=== PATIENT | female | born 1980 | race Caucasian/White ===

== ENCOUNTER 2020-11-17 22:54 | Emergency (ER) | payer OTHER ==
[~2020-11-17] VITALS: Ht 170.2 cm; Wt 83.3 kg
[2020-11-18 00:20] LABS: BASOPHILS % (AUTO) 1 % (0-1); EOSINOPHILS % (AUTO) 1 % (1-7); LYMPHOCYTES % (AUTO) 15 % (22-44); MEAN CORPUSCULAR HEMOGLOBIN 32.2 pg (27.0-34.8); MEAN CORPUSCULAR HGB CONC 34.3 g/dL (32.4-35.8); MEAN PLATELET VOLUME 7.1 fL (7.4-10.4); MONOCYTES % (AUTO) 6 % (2-9); NEUTROPHILS % (AUTO) 78 % (42-75); PLATELET COUNT 320 x10^3/uL (130-400); RED BLOOD COUNT 4.36 x10^6/uL (3.82-5.3)
[2020-11-18 00:23] LABS: MD NO
[2020-11-18 00:29] LABS: ALBUMIN 4.4 g/dL (3.4-5.0); ANION GAP 7 mmol/L (5-15); CALCIUM 9.3 mg/dL (8.5-10.1); CHLORIDE 104 mmol/L (98-107); CREATININE 0.73 mg/dL (0.55-1.02)
[2020-11-18 00:39] LABS: TROPONIN I < 0.015 ng/mL (0.000-0.045)
[2020-11-18 00:52] LABS: FREE T4 (FREE THYROXINE) 1.16 ng/dL (0.76-1.46)
--- NOTE | 2020-11-18 01:49 | NUR ---
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 STEADY UPON AMBULATION.
[2020-11-18] MEDS ORDERED: ONDANSETRON ODT 4 MG ONE (02:57)
--- NOTE | 2020-11-18 02:59 | NUR ---
pt provided urine sample, pt laying in bed, pt stated that she felt better after providing sample, zofran given, family at bedside
[2020-11-18] MEDS ORDERED: ONDANSETRON ODT 4 MG PO ONE (03:00)
[2020-11-18 03:10] LABS: MICROSCOPIC INDICATED
--- NOTE | 2020-11-18 03:19 | NUR ---
pt reports that the nausea has gotten better but pt still has stomach pain, pt laying in bed, a/ox4, all needs in reach, call light in reach, family at bedside
[2020-11-18] MEDS ORDERED: CEFDINIR 300 MG CAPSULE ONE (04:20)
[2020-11-18] MEDS ORDERED: CEFDINIR 300 MG CAPSULE PO ONE (04:30)
[2020-11-18 04:53] VITALS: BP 101/72
== END 2020-11-18 04:55 | disposition home or self-care (01) ==
LOC: ED 11-18 02:03
DX: N30.00 Acute cystitis without hematuria (principal); R11.0 Nausea; R07.89 Other chest pain; Z90.49 Acquired absence of other specified parts of digestive tract
CPT/HCPCS: 36415; 71046; 80048; 81001; 82040; 84439; 84443; 84484; 84703; 85025; 87086; 93005; 99285; Q0162

== ENCOUNTER → 2021-01-03 | Outpatient (CLI) | payer OTHER ==
[2021-01-03 14:21] LABS: BASOPHILS % (AUTO) 0 % (0-1); EOSINOPHILS % (AUTO) 1 % (1-7); LYMPHOCYTES % (AUTO) 14 % (22-44); MEAN CORPUSCULAR HGB CONC 34.3 g/dL (32.4-35.8); MEAN PLATELET VOLUME 7.4 fL (7.4-10.4); MONOCYTES % (AUTO) 5 % (2-9); NEUTROPHILS % (AUTO) 80 % (42-75); PLATELET COUNT 296 x10^3/uL (130-400)
[2021-01-03 14:24] LABS: MICROSCOPIC AUTO
[2021-01-03 14:28] LABS: CHLORIDE 106 mmol/L (98-107)
[2021-01-03 14:29] LABS: ALANINE AMINOTRANSFERASE 19 U/L (12-78); ALBUMIN 4.1 g/dL (3.4-5.0); ANION GAP 5 mmol/L (5-15); CALCIUM 8.9 mg/dL (8.5-10.1); CREATININE 0.63 mg/dL (0.55-1.02)
[2021-01-03 14:31] LABS: ALKALINE PHOSPHATASE 68 U/L (45-117); BILIRUBIN,TOTAL 0.6 mg/dL (0.2-1.0); TOTAL PROTEIN 8.1 g/dL (6.4-8.2)
== END | disposition home or self-care (01) ==
LOC: LAB 13:15
PROVIDERS: ATTEND Registered Nurse Medical-Surgical
DX: R10.9 Unspecified abdominal pain (principal); R11.0 Nausea; R51.9 Headache, unspecified; N39.0 Urinary tract infection, site not specified; Z90.49 Acquired absence of other specified parts of digestive tract
CPT/HCPCS: 36415; 76700; 80053; 81001; 85025; 87086

== ENCOUNTER 2021-01-05 06:31 | Emergency (ER) | payer OTHER ==
[~2021-01-05] VITALS: Ht 170.2 cm; Wt 77.9 kg
--- NOTE | 2021-01-05 06:54 | NUR ---
RECEIVED REPORT FROM SCAR. PT UPRIGHT ON GURNEY AWAKE & CALM, RESPONDS APPROP TO STAFF, NAD, NO NEEDS AT THIS TIME, CALL LIGHT WITHIN REACH.
--- NOTE | 2021-01-05 06:59 | NUR ---
Report to Karen MCCARTHY
[2021-01-05 07:56] LABS: BASOPHILS % (AUTO) 0 % (0-1); EOSINOPHILS % (AUTO) 1 % (1-7); LYMPHOCYTES % (AUTO) 11 % (22-44); MEAN CORPUSCULAR HGB CONC 34.2 g/dL (32.4-35.8); MEAN PLATELET VOLUME 7.3 fL (7.4-10.4); MONOCYTES % (AUTO) 6 % (2-9); NEUTROPHILS % (AUTO) 83 % (42-75); PLATELET COUNT 296 x10^3/uL (130-400); RED BLOOD COUNT 4.27 x10^6/uL (3.82-5.3); RED CELL DISTRIBUTION WIDTH 12.7 % (9.6-15.2)
[2021-01-05 07:59] LABS: ALANINE AMINOTRANSFERASE 18 U/L (12-78); ANION GAP 3 mmol/L (5-15); CALCIUM 9.1 mg/dL (8.5-10.1); CHLORIDE 107 mmol/L (98-107)
--- NOTE | 2021-01-05 08:02 | NUR ---
PT REMAINS UPRIGHT ON GURNEY AWAKE & CALM, RESPONDS APPROP TO STAFF, NAD, NO NEEDS AT THIS TIME, MOM AT BS, CALL LIGHT WITHIN REACH.
[2021-01-05 08:04] LABS: ALKALINE PHOSPHATASE 63 U/L (45-117); BILIRUBIN,TOTAL 0.5 mg/dL (0.2-1.0); CREATININE 0.83 mg/dL (0.55-1.02); FREE T4 (FREE THYROXINE) 1.18 ng/dL (0.76-1.46); TOTAL PROTEIN 7.4 g/dL (6.4-8.2); TROPONIN I < 0.015 ng/mL (0.000-0.045)
[2021-01-05 08:11] LABS: MICROSCOPIC INDICATED
[2021-01-05 09:05] VITALS: BP 113/71
--- NOTE | 2021-01-05 09:05 | NUR ---
PT UPRIGHT ON GURNEY AWAKE & CALM, RESPONDS APPROP TO STAFF, NAD, NO NEEDS AT THIS TIME, CALL LIGHT WITHIN REACH.
--- NOTE | 2021-01-05 09:33 | NUR ---
Patient given discharge instructions and they have confirmed that they understand the instructions. Patient ambulatory with steady gait. NAD, all questions answered appropriately, denies additional needs at this time. No personal belongings left in room after discharge.
== END 2021-01-05 09:36 | disposition home or self-care (01) ==
LOC: ED 08:35
DX: I49.3 Ventricular premature depolarization (principal); E87.6 Hypokalemia; R07.89 Other chest pain; R51.9 Headache, unspecified; Z90.49 Acquired absence of other specified parts of digestive tract
CPT/HCPCS: 36415; 71045; 80053; 81001; 84439; 84443; 84484; 84703; 85025; 93005; 99283; 99285

== ENCOUNTER → 2021-01-21 | Outpatient (CLI) | payer OTHER | END | disposition home or self-care (01) | LOC: LAB 07:50 | PROVIDERS: ATTEND Nurse Practitioner Family | DX: R23.2 Flushing (principal); F41.9 Anxiety disorder, unspecified | CPT/HCPCS: 36415; 82533; 82672; 83001; 83002; 84144 ==

== ENCOUNTER → 2021-01-22 | Outpatient (CLI) | payer OTHER ==
[2021-01-22 13:40] LABS: ANION GAP 6 mmol/L (5-15); CALCIUM 9.2 mg/dL (8.5-10.1); CHLORIDE 104 mmol/L (98-107)
== END | disposition home or self-care (01) ==
LOC: LAB 13:18
PROVIDERS: ATTEND Internal Medicine Cardiovascular Disease
DX: E87.6 Hypokalemia (principal); R00.2 Palpitations; R94.31 Abnormal electrocardiogram [ECG] [EKG]; I49.3 Ventricular premature depolarization; F41.9 Anxiety disorder, unspecified
CPT/HCPCS: 36415; 80048; 83735

== ENCOUNTER 2021-03-05 10:20 | Emergency (ER) | payer OTHER ==
[~2021-03-05] VITALS: Ht 170.2 cm; Wt 73.2 kg
--- NOTE | 2021-03-05 10:59 | NUR ---
EKG DONE IN TRIAGE
[2021-03-05 11:28] LABS: BASOPHILS % (AUTO) 1 % (0-1); EOSINOPHILS % (AUTO) 1 % (1-7); LYMPHOCYTES % (AUTO) 14 % (22-44); MEAN CORPUSCULAR HEMOGLOBIN 32.4 pg (27.0-34.8); MEAN CORPUSCULAR HGB CONC 34.7 g/dL (32.4-35.8); MEAN PLATELET VOLUME 7.4 fL (7.4-10.4); MONOCYTES % (AUTO) 8 % (2-9); NEUTROPHILS % (AUTO) 77 % (42-75); PLATELET COUNT 280 x10^3/uL (130-400); RED BLOOD COUNT 4.51 x10^6/uL (3.82-5.3); RED CELL DISTRIBUTION WIDTH 13.2 % (9.6-15.2)
[2021-03-05 11:35] LABS: ALBUMIN 4.2 g/dL (3.4-5.0); ANION GAP 9 mmol/L (5-15); CALCIUM 9.2 mg/dL (8.5-10.1); CHLORIDE 103 mmol/L (98-107)
[2021-03-05 11:43] LABS: ALANINE AMINOTRANSFERASE 21 U/L (12-78); ALKALINE PHOSPHATASE 75 U/L (45-117); BILIRUBIN,TOTAL 0.9 mg/dL (0.2-1.0); CREATININE 0.66 mg/dL (0.55-1.02); TOTAL PROTEIN 8.1 g/dL (6.4-8.2); TROPONIN I < 0.015 ng/mL (0.000-0.045)
--- NOTE | 2021-03-05 17:17 | NUR ---
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
[2021-03-05] MEDS ORDERED: LORazepam 1MG TABLET ONE (17:59)
[2021-03-05] MEDS ORDERED: LORazepam 1MG TABLET PO ONE (18:00)
[2021-03-05] MEDS ORDERED: LORazepam 0.5MG TABLET ONE (18:00)
--- NOTE | 2021-03-05 18:05 | NUR ---
PT REQUESTING HALF DOSE OF ORDERED MED. PT PROVIDED W/ 0.5MG TAB ATIVAN. PT BECAME EMOTIONAL STATING THAT MOST MEDICATIONS GIVE HER A BAD REACTION. PT REQUESTING A LITTLE TIME TO THINK ABOUT IF SHE WANTS TO TAKE IT OR NOT.
--- NOTE | 2021-03-05 18:38 | NUR ---
PT DECLINING ATIVAN AT THIS TIME.
[2021-03-05 18:46] VITALS: BP 112/66
== END 2021-03-05 18:52 | disposition home or self-care (01) ==
LOC: ED 18:00
DX: F41.1 Generalized anxiety disorder (principal); R07.89 Other chest pain
CPT/HCPCS: 36415; 71045; 80053; 84484; 85025; 93005; 99285